=== PATIENT | female | born 1980 | race Caucasian/White ===

== ENCOUNTER 2017-01-21 12:27 | Emergency (ER) | payer BC, OTHER ==
[2017-01-21 12:49] VITALS: BP 107/73
--- NOTE | 2017-01-21 14:03 | UC ---
Respiratory Complaint HPI - HPI Summary HPI Summary: PT WITH OVER 6 WEEKS OF RESPIRATORY SYMPTOMS - COUGH, CONGESTION, EAR PAIN. 2 WEEKS AGO HAD POSITIVE FLU SWAB. HAS PERSISTENT COUGH AND CHEST TIGHTNESS. IS HAVING A HARD TIME SLEEPING DUE TO TIGHTNESS AND COUGH. NO FEVER RECENTLY. - History of Current Complaint Chief Complaint: UCRespiratory Stated Complaint: RESP Time Seen by Provider: 01/21/17 13:41 Hx Obtained From: Patient Hx Last Menstrual Period: January 02 Onset/Duration: Gradual Onset, Lasting Weeks, Still Present Timing: Constant Severity Initially: Moderate Severity Currently: Moderate Pain Intensity: 3 Pain Scale Used: 0-10 Numeric Character: Cough: Productive Aggravating Factors: Nothing Alleviating Factors: Nothing Associated Signs And Symptoms: Positive: URI, Nasal Congestion. Negative: Dyspnea, Fever, Chills, Pleuritic Chest Pain, Wheezing, Hemoptysis, Dizziness, Edema, Hoarseness, Sinus Discomfort - Allergies/Home Medications Allergies/Adverse Reactions: Allergies Allergy/AdvReac Type Severity Reaction Status Date / Time Latex Allergy Intermediate Hives/Diff. Verified 01/21/17 12:49 Breathing/I tching Codeine AdvReac Intermediate nausia/vomi Verified 01/21/17 12:49 ting PMH/Surg Hx/FS Hx/Imm Hx Previously Healthy: Yes Endocrine History Of: Denies: Diabetes, Thyroid Disease Cardiovascular History Of: Denies: Cardiac Disorders, Hypertension, Pacemaker/ICD, Congestive Heart Failure, Atrial Fibrillation Respiratory History Of: Denies: COPD, Asthma, Bronchitis GI/ History Of: Denies: Ulcer - Surgical History Surgical History: Yes Surgery Procedure, Year, and Place: C Section January 2013 - Family History Known Family History: Positive: Diabetes - Social History Alcohol Use: Occasionally Substance Use Type: None Smoking Status (MU): Never Smoked Tobacco - Immunization History Most Recent Influenza Vaccination: 2015 Review of Systems Constitutional: Negative ENT: Ear Ache, Nasal Discharge Respiratory: Cough Cardiovascular: Negative Gastrointestinal: Negative All Other Systems Reviewed And Are Negative: Yes Physical Exam Triage Information Reviewed: Yes Appearance: Well-Appearing, No Pain Distress, Well-Nourished Vital Signs: Initial Vital Signs Temp 98.3 F 01/21/17 12:43 Pulse 76 01/21/17 12:43 Resp 20 01/21/17 12:43 BP 107/73 01/21/17 12:43 Pulse Ox 99 01/21/17 12:43 Vital Signs Reviewed: Yes Eyes: Positive: Conjunctiva Clear ENT: Positive: Hearing grossly normal, Pharynx normal, TMs normal Neck: Positive: Supple, Nontender, No Lymphadenopathy Respiratory Exam: Normal Cardiovascular Exam: Normal Abdomen Description: Positive: Soft Musculoskeletal: Positive: No Edema Neurological: Positive: Alert Psychological: Positive: Age Appropriate Behavior Skin: Negative: rashes UC Diagnostic Evaluation - Laboratory O2 Sat by Pulse Oximetry: 99 Respiratory Course/Dx - Differential Dx/Diagnosis Provider Diagnoses: ACUTE BRONCHITIS Discharge - Discharge Plan Condition: Stable Disposition: HOME Prescriptions: Albuterol 2.5MG/3ML (0.083%)* [Ventolin 2.5 MG/3 ML NEB.PARI*] 2.5 mg INH Q4H PRN #1 box PRN Reason: Wheezing Albuterol HFA INHALER* [Ventolin HFA Inhaler*] 2 puff INH Q4H PRN #1 mdi PRN Reason: Shortness Of Breath Ondansetron ODT TAB* [Zofran Odt TAB*] 4 mg PO Q6H PRN #20 tab.odt PRN Reason: Nausea/Vomiting guaiFENesin/CODIEN 100MG-10MG* [Robitussin AC 100Mg-10Mg*] 5 - 10 ml PO Q6H PRN #150 ml MDD 40ML PRN Reason: Cough predniSONE TAB* [Deltasone TAB*] 40 mg PO DAILY #10 tab Patient Education Materials: Acute Bronchitis (ED) Referrals: Irvin Cano MD [Primary Care Provider] - If Needed Additional Instructions: LIKELY VIRAL ETIOLOGY OF YOUR SYMPTOMS. TRY ALBUTEROL AND PREDNISONE TO HELP CALM DOWN AIRWAY INFLAMMATION AND OPEN UP YOUR AIRWAYS. COUGH MEDICINE NEEDED. IF YOU DEVELOP NAUSEA WITH THE CODEINE TAKE ZOFRAN. SEEK FOLLOW-UP IF YOU ARE NOT IMPROVING OVER THE NEXT WEEK OR SO.
== END 2017-01-21 14:00 | disposition home or self-care (01) ==
LOC: UCEAST 12:27
DX: J20.9 Acute bronchitis, unspecified (principal)
CPT/HCPCS: 99212; G0463

== ENCOUNTER 2018-11-14 09:25 | Emergency (ER) | payer BC ==
[2018-11-14 09:47] VITALS: BP 116/68
--- NOTE | 2018-11-14 10:16 | UC ---
Respiratory Complaint HPI - HPI Summary HPI Summary: has been sick with URI symps for 3-4 weeks. treated 1 week ago for sinusitis with amoxil x 5 days. started to feel better until yesterday when her cough got worse, preventing sleep. R sinus is starting to feel pressure. is using mucinex - History of Current Complaint Chief Complaint: UCRespiratory Stated Complaint: URI Time Seen by Provider: 11/14/18 09:54 Hx Obtained From: Patient Hx Last Menstrual Period: 11/13/18 Onset/Duration: Gradual Onset Timing: Constant Pain Intensity: 3 Character: Cough: Nonproductive Alleviating Factors: Nothing Associated Signs And Symptoms: Positive: Fever, Nasal Congestion. Negative: Hemoptysis - Allergies/Home Medications Allergies/Adverse Reactions: Allergies Allergy/AdvReac Type Severity Reaction Status Date / Time Latex, Natural Rubber Allergy Intermediate Hives/Diff. Verified 11/14/18 09:47 Breathing/I tching PMH/Surg Hx/FS Hx/Imm Hx Previously Healthy: Yes Respiratory History: Asthma - Surgical History Surgical History: Yes Surgery Procedure, Year, and Place: C Section January 2013 - Family History Known Family History: Positive: Diabetes - Social History Occupation: Employed Part-time - RN Alcohol Use: None Substance Use Type: None Smoking Status (MU): Never Smoked Tobacco - Immunization History Most Recent Influenza Vaccination: 2018 Review of Systems All Other Systems Reviewed And Are Negative: Yes Constitutional: Positive: Fever, Fatigue Skin: Positive: Negative Eyes: Positive: Negative ENT: Positive: Sore Throat, Sinus Congestion Respiratory: Positive: Cough Cardiovascular: Positive: Negative Gastrointestinal: Positive: Negative Neurological: Positive: Negative Psychological: Positive: Negative Is Patient Immunocompromised?: No Physical Exam Triage Information Reviewed: Yes Appearance: Well-Appearing, No Pain Distress, Well-Nourished Vital Signs: Initial Vital Signs Temp 96.8 F 11/14/18 09:42 Pulse 72 11/14/18 09:42 Resp 16 11/14/18 09:42 BP 116/68 11/14/18 09:42 Pulse Ox 99 11/14/18 09:42 Vital Signs Reviewed: Yes Eyes: Positive: Conjunctiva Clear ENT: Positive: Pharynx normal, Nasal congestion Neck: Positive: Nontender, No Lymphadenopathy Respiratory Exam: Normal Respiratory: Positive: Lungs clear Cardiovascular Exam: Normal Cardiovascular: Positive: RRR Psychological Exam: Normal Skin Exam: Normal Skin: Negative: Rashes UC Diagnostic Evaluation - Laboratory O2 Sat by Pulse Oximetry: 99 Respiratory Course/Dx - Differential Dx/Diagnosis Differential Diagnosis/HQI/PQRI: Asthma, Bronchitis, Influenza, Lower Resp Infection, Sinusitis Provider Diagnosis: Bronchitis Discharge - Sign-Out/Discharge Documenting (check all that apply): Patient Departure All imaging exams completed and their final reports reviewed: No Studies - Discharge Plan Condition: Stable Disposition: HOME Prescriptions: Albuterol 2.5MG/3ML (0.083%)* [Ventolin 2.5 MG/3 ML NEB.PARI*] 2.5 mg INH Q6H PRN #90 neb.pari PRN Reason: Sob/Wheezing Azithromycin TAB* [Zithromax TAB (Z-DYLLAN) 250 mg #6 tabs] 2 tab PO .TODAY, THEN 1 DAILY #1 dyllan predniSONE TAB* [Deltasone TAB*] 50 mg PO DAILY #3 tab Patient Education Materials: Acute Bronchitis (ED) Referrals: Irvin Cano MD [Primary Care Provider] - 2 Days (if no better) Additional Instructions: rest, drink plenty of fluids use medications as directed return if problems worsen - Billing Disposition and Condition Condition: STABLE Disposition: Home - Attestation Statements Provider Attestation: I was available for consult. This patient was seen by the WANDA. The patient was not presented to , seen by or examined by ia -Francisco Javier Porter MD
== END 2018-11-14 10:45 | disposition home or self-care (01) ==
LOC: UCEAST 09:25
DX: J45.909 Unspecified asthma, uncomplicated (principal); Z91.040 Latex allergy status
CPT/HCPCS: 99212; G0463

== ENCOUNTER 2019-01-02 09:06 | Emergency (ER) | payer BC ==
[2019-01-02 09:16] VITALS: BP 111/66
--- NOTE | 2019-01-02 09:24 | UC ---
Lower Extremity/Ankle HPI - HPI Summary HPI Summary: Patient is year old , who present today to the urgent care with for past days. Associated symptoms: No sick contacts . No skin rash. Denies any new soap, detergent , cosmetics, food or a possible exposure. Denies any fever, chills, cough chest pain or shortness of breath . No diaphoresis. Denies any abdominal pain , nausea or vomiting , diarrhea or constipation. There is no stridor, grunting or audible wheezing drooling, chest retraction or dehydration. Denies any conjunctival redness, irritation, increased lacrimation. Denies any grittiness Denies any radicular symptoms, numbness , tingling , incontinence, saddle anesthesia , motor or sensory disturbance. Patient tried over the counter medication without much relief. - History of Current Complaint Chief Complaint: UCLowerExtremity Stated Complaint: LEFT FOOT PAIN Time Seen by Provider: 01/02/19 09:18 Hx Last Menstrual Period: 12/31/18 Pain Intensity: 7 - Allergies/Home Medications Allergies/Adverse Reactions: Allergies Allergy/AdvReac Type Severity Reaction Status Date / Time Latex, Natural Rubber Allergy Intermediate Hives/Diff. Verified 01/02/19 09:16 Breathing/I tching Home Medications: Home Medications Ibuprofen TAB* [Motrin TAB* 800 MG] 1 tab PO BID 01/02/19 [History Confirmed ] PMH/Surg Hx/FS Hx/Imm Hx - Surgical History Surgical History: Yes Surgery Procedure, Year, and Place: C Section January 2013 - Family History Known Family History: Positive: Diabetes - Social History Alcohol Use: Occasionally Substance Use Type: None Smoking Status (MU): Never Smoked Tobacco - Immunization History Most Recent Influenza Vaccination: 2017 Physical Exam - Summary Physical Exam Summary: Physical Exam: Const: Appears well. No signs of apparent distress present. Alert and oriented x 3. Musculo: Walks with a normal gait. Head/Face: Atraumatic, normocephalic on inspection. Eyes: EOMI and PERRLA in both eyes. Conjunctivae clear. No discharge noted ENT: Hearing normal, TM normal appearing bilaterally, non bulging , non erythematous . No tenderness on palpation / manipulation of Tragus. No mastoid tenderness. No tenderness to palpation on maxillary and frontal sinus. No pharyngeal erythema or exudates . Uvula is midline. No cervical or submandibular lymphadenopathy noted. Respiratory: Respirations are unlabored. Lungs clear to auscultation bilaterally, no wheezing , rhonchi or rales noted . CVS: Regular rate and Rhythm, S1S2 normal , no murmurs identified. Extremities: Peripheral circulation is grossly normal. Pulses 2+ Abdomen : Soft non tender , nondistended , Bowel sounds present . No guarding , rebound tenderness or rigidity noted. Skin: No lesions or rash located on the upper extremities or on the lower extremities. Neuro: Cranial nerves II to XII intact, motor and sensory intact. DTR Intact bilaterally. Mood is normal. Affect is normal. Ankle/Feet examination: Ankle: Gait: Normal weight bearing, Inspection/palpation: No bruising, swelling or crepitus noted. There is tenderness to palpation in the area of ATFL, CFL, PTFL, Deltoid ligament. There is no tenderness to palpation of the medial malleolus, lateral malleolus or the base of 5th metatarsal. Ankle mortise appears intact. ROM: full AROM: Full dorsiflexion(20 deg), Full plantar flexion(50 deg) Strength: 5/5 with dorsiflexion, plantarflexion, inversion and eversion Special tests:Anterior drawer test is negative . Side to side test negative.Talar tilt test(inversion stress) and the eversion stress test negative. Negative Squeeze and External Rotation tests. Heel tap test negative. Ankle of other side is negative for bruising, swelling or tenderness to palpation. It has full ROM, strength and stability. Feet: Insp/Palp: Feet normal to inspection bilaterally, normal arch of the feet bilaterally. His Strength: EHL 5/5 blaterally Skin: No scars, rashes, lesions or ecchymosis. 2+ posterior tibial and dorsalis pedis pulse bilaterally. Neuro: Sensation to light touch is intact in the lower extremities bilaterally. Coordination normal. Vital Signs: Initial Vital Signs Temp 97.6 F 01/02/19 09:13 Pulse 74 01/02/19 09:13 Resp 16 01/02/19 09:13 BP 111/66 01/02/19 09:13 Pulse Ox 100 01/02/19 09:13 Lower Extremity Course/Dx - Course Course Of Treatment: During the visit today, we obtained . We discussed the findings and further plan. I will prescribe the medication to the pharmacy . Patient expressed understanding . Discharge - Discharge Plan Referrals: Freya Fuchs DO [Primary Care Provider] - Additional Instructions: Please start taking the medication as prescribed to the pharmacy . Follow up with your primary care doctor in 2 days. Please follow up with .. for the consult Patients blood pressure slightly high in Urgent care today , plan follow up with PCP for better control Return to Urgent care / ER if symptoms get worse.
[2019-01-02] MEDS ORDERED: Ketorolac INJ* 30 MG/ML 1 ML VIAL IM ONE (09:27)
--- NOTE | 2019-01-02 09:30 | UC ---
Lower Extremity/Ankle HPI - HPI Summary HPI Summary: 38-year-old female with pain and swelling at the base of the left great toe. 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 Earlier in the week she had increased swelling and pain and was evaluated by a physician and given Toradol 60 mg IM and advised to have an x-ray done. The physician at that time thought she might have gout although she has no history of gout. She wears comfortable sneakers. - History of Current Complaint Chief Complaint: UCLowerExtremity Stated Complaint: LEFT FOOT PAIN Time Seen by Provider: 01/02/19 09:18 Hx Obtained From: Patient Hx Last Menstrual Period: 12/31/18 ?: No Onset/Duration: Gradual Onset Severity Initially: Moderate Severity Currently: Mild - Vision states the swelling and pain has improved this morning. 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 She does have a history of small bunion on both feet at the base of the great toe. - Risk Factors Gout Risk Factors: Age Over 40 DVT Risk Factors: Negative Septic Arthritis Risk Factor: Negative - Allergies/Home Medications Allergies/Adverse Reactions: Allergies Allergy/AdvReac Type Severity Reaction Status Date / Time Latex, Natural Rubber Allergy Intermediate Hives/Diff. Verified 01/02/19 09:16 Breathing/I tching Home Medications: Home Medications Ibuprofen TAB* [Motrin TAB* 800 MG] 1 tab PO BID 01/02/19 [History Confirmed ] PMH/Surg Hx/FS Hx/Imm Hx Previously Healthy: Yes - Surgical History Surgical History: Yes Surgery Procedure, Year, and Place: C Section January 2013 - Family History Known Family History: Positive: Diabetes - Social History Occupation: Employed Full-time Lives: With Family Alcohol Use: Occasionally Substance Use Type: None Smoking Status (MU): Never Smoked Tobacco - Immunization History Most Recent Influenza Vaccination: 2017 Review of Systems All Other Systems Reviewed And Are Negative: Yes Motor: Positive: Negative Neurovascular: Positive: Negative Musculoskeletal: Positive: Other: - Swelling at the base of the great toe has improved today. She has not noted any erythema to the area. She's had more pain with flexion and extension but that has improved today as well. Neurological: Positive: Negative Psychological: Positive: Negative Is Patient Immunocompromised?: No Physical Exam Triage Information Reviewed: Yes Appearance: Well-Appearing, No Pain Distress, Well-Nourished Vital Signs: Initial Vital Signs Temp 97.6 F 01/02/19 09:13 Pulse 74 01/02/19 09:13 Resp 16 01/02/19 09:13 BP 111/66 01/02/19 09:13 Pulse Ox 100 01/02/19 09:13 Vital Signs Reviewed: Yes Musculoskeletal: Positive: Strength Intact, ROM Intact, Other: - Mild swelling at the base of the great toe, no cellulitis or erythema, there is mildly increased pain to the lateral portion of the left great toe. No deformity, bruising is noted. No Tenderness, Achilles is intact. Peripheral pulses neuro sensation and capillary refill. Neurological Exam: Normal Psychological Exam: Normal Skin Exam: Normal Lower Extremity Course/Dx - Course Course Of Treatment: Patient has no history of gout and her great toe is not erythematous and has normal temperature to touch. I feel this may be more because of the bunion that she has or a result of some arthritic findings which were noted on the x- ray. She is going to continue Motrin and I advised her to follow-up with a sandblaster supervisor for further treatment. We also discussed quality of shoes that she wears for her long shifts. REPORT AND IMPRESSION: #. 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 Normal variant bipartite sesamoid at the medial head of the flexor hallucis brevis. Negative for fracture or stress reaction. Os peroneum accessory ossicle noted. Unremarkable soft tissue contours. - Differential Dx/Diagnosis Differential Diagnosis/HQI/PQRI: Gout Provider Diagnosis: Toe pain Discharge - Sign-Out/Discharge Documenting (check all that apply): Patient Departure All imaging exams completed and their final reports reviewed: Yes - Discharge Plan Condition: Good Disposition: HOME Patient Education Materials: Swollen Joint (ED) Forms: *Work Release Referrals: Freya Fuchs DO [Primary Care Provider] - Additional Instructions: Elevate your foot as much as possible. Continue to take Motrin 600 mg by mouth every 8 hours for pain. Apply heat to the sore area. Definite follow-up with a sandblaster supervisor in the next 2 or 3 days if no improvement. - Billing Disposition and Condition Condition: GOOD Disposition: Home - Attestation Statements Provider Attestation: I was available for consult. This patient was seen by the WANDA. The patient was not presented to , seen by or examined by ne -Francisco Javier Porter MD
== END 2019-01-02 10:22 | disposition home or self-care (01) ==
LOC: UCEAST 09:06
DX: M79.675 Pain in left toe(s) (principal); Z91.040 Latex allergy status
CPT/HCPCS: 96372; 99211; G0463; J1885

== ENCOUNTER 2019-03-02 18:52 | Emergency (ER) | payer BC ==
--- NOTE | 2019-03-02 21:03 | ED ---
Abdominal Pain/Female - HPI Summary HPI Summary: A 38 y/o F presents to ED c/o intermittent episodes of severe nausea onset one week ago, and returning this afternoon. Last week, she had nausea and took Tums , Pepto and Zofran to no relief. Six days ago, she was travelling and ate a cheeseburger. The next day, she woke up doubled over in pain. She limited her diet to saltines for the weekend and felt improved but not a hundred percent. Today, patient ate a salad at 1230, and had to leave work early due to the abd pain. She took OTC medications to mild relief. At 1700, she took a bite of yogurt, and the nausea and abd pain worsened and now radiates to her back. Denies vomiting. She is hungry but feels sick each time she eats. [facility]: IUD. Denies chance of . Surgeries: . - History of Current Complaint Chief Complaint: EDAbdPain Stated Complaint: ABD PAIN PER PT Time Seen by Provider: 03/02/19 20:57 Hx Obtained From: Patient Hx Last Menstrual Period: 12/31/18 Onset/Duration: Lasting Hours - this episode, Still Present Timing: Intermittent Episode Lasting Severity Initially: Moderate Severity Currently: Severe Pain Intensity: 7 Pain Scale Used: 0-10 Numeric Location: Discrete At: RUQ Radiates: Yes Radiates to: Back Character: Burning Aggravating Factor(s): Food Alleviating Factor(s): OTC Analgesics, Spontaneous Resolution Associated Signs and Symptoms: Positive: Back Pain, Nausea. Negative: Vomiting Allergies/Adverse Reactions: Allergies Allergy/AdvReac Type Severity Reaction Status Date / Time Latex, Natural Rubber Allergy Intermediate Hives/Diff. Verified 03/02/19 18:59 Breathing/I tching Home Medications: Home Medications Multivitamin [Once Daily] 1 tab PO DAILY 03/02/19 [History Confirmed 03/02/19] PMH/Surg Hx/FS Hx/Imm Hx Previously Healthy: Yes Endocrine/Hematology History: Denies: Hx Diabetes, Hx Thyroid Disease Cardiovascular History: Denies: Hx Congestive Heart Failure, Hx Hypertension, Hx Pacemaker/ICD, Other Cardiovascular Problems/Disorders Respiratory History: Denies: Hx Asthma, Hx Chronic Obstructive Pulmonary Disease (COPD), Other Respiratory Problems/Disorders GI History: Denies: Hx Ulcer History: Denies: Hx Renal Disease - Surgical History Surgery Procedure, Year, and Place: C Section January 2013 Infectious Disease History: No Infectious Disease History: Denies: Hx Clostridium Difficile, Hx Hepatitis, Hx Human Immunodeficiency Virus (HIV), Hx of Known/Suspected MRSA, Hx Shingles, Hx Tuberculosis, Hx Known/ Suspected VRE, History Other Infectious Disease, Traveled Outside the [place] in Last 30 Days - Family History Known Family History: Positive: Diabetes - Social History Occupation: Employed Full-time Lives: Dormitory/Roommates Alcohol Use: Occasionally Hx Substance Use: No Substance Use Type: Reports: None Hx Tobacco Use: No Smoking Status (MU): Never Smoked Tobacco Review of Systems Positive: Abdominal Pain, Nausea. Negative: Vomiting Musculoskeletal: Other - pos: back pain radiating from abd All Other Systems Reviewed And Are Negative: Yes Physical Exam - Summary Physical Exam Summary: Appearance: Well-appearing, Well-nourished, lying in bed comfortably Skin: Warm, dry, no obvious rash Eyes: sclera anicteric, no conjunctival pallor ENT: mucous membranes moist, pharynx appears normal Neck: Supple, nontender Respiratory: Clear to auscultation, no signs of respiratory distress Cardiovascular: Normal S1, S2. No murmurs. Normal distal pulses in tibial and radial bilaterally. Abdomen: Soft, RUQ tenderness with guarding, normal active bowel sounds present Musculoskeletal: Normal, Strength/ROM Intact Neurological: A&Ox3, awake and alert, mentation is normal, speech is fluent and appropriate Psychiatric: affect is normal, does not appear anxious or depressed Triage Information Reviewed: Yes Vital Signs On Initial Exam: Initial Vitals Temp Pulse Resp BP Pulse Ox 98 F 73 16 125/85 98 03/02/19 18:56 03/02/19 18:56 03/02/19 18:56 03/02/19 18:56 03/02/19 18:56 Vital Signs Reviewed: Yes Diagnostics - Vital Signs Vital Signs Temp Pulse Resp BP Pulse Ox 03/02/19 18:56 98 F 73 16 125/85 98 - Laboratory Result Diagrams: 03/02/19 21:24 03/02/19 21:24 Lab Statement: Any lab studies that have been ordered have been reviewed, and results considered in the medical decision making process. - Ultrasound No standard instances Ultrasound Interpretation Completed By: Radiologist Summary of Ultrasound Findings: GALLBLADDER US IMPRESSION: 1. Borderline hepatomegaly. 2. Positive sono Yeboah's sign with no gallstones and no gallbladder wall thickening. 3. Otherwise negative upper quadrant sonogram. ED provider has reviewed this report. Re-Evaluation - Re-Evaluation 1 Re-Evaluation Time: 23:44 Comment: Discussing results with patient and plans for discharge. She has no abd tenderness and is agreeable to D/C. Abdominal Pain Fem Course/Dx - Course Course Of Treatment: Patient is a 38 y/o F presenting with intermittent episodes of severe nausea onset one week ago, and returning this afternoon. Aggravating factors: eating. Denies vomiting. She is hungry but feels sick each time she eats. [facility]: IUD. Denies chance of . Surgeries: . Lab work is without significant abnormality. UA results are negative for infection. Gallbladder US shows "1. Borderline hepatomegaly. 2. Positive sono Yeboah's sign with no gallstones and no gallbladder wall thickening. 3. Otherwise negative upper quadrant sonogram.". Will discharge patient home. - Diagnoses Provider Diagnoses: Acute abdominal pain Discharge - Sign-Out/Discharge Documenting (check all that apply): Patient Departure - D/C Patient Received Moderate/Deep Sedation with Procedure: No - Discharge Plan Condition: Improved Disposition: HOME Patient Education Materials: Acute Abdominal Pain (ED) Referrals: Freya Fuchs DO [Primary Care Provider] - Additional Instructions: Continue the prilosec for now, but if your symptoms persist you may need a special test called a CCK-HIDA scan to look for problems with your gall bladder function. - Billing Disposition and Condition Condition: IMPROVED Disposition: Home - Attestation Statements Document Initiated by Lindyibe: Yes Documenting Scribe: Sonya Collins Provider For Whom Renetta is Documenting (Include Credential): Dr. Hector Allen MD Scribe Attestation: Sonya Andersen scribed for Dr. Hector Allen MD on 03/03/19 at 0309. Scribe Documentation Reviewed: Yes Provider Attestation: The documentation as recorded by the Sonya maradiaga accurately reflects the service I personally performed and the decisions made by me, Dr. Hector Allen MD Status of Scribe Document: Viewed
[2019-03-02] MEDS ORDERED: PROCHLORPERAZINE INJ 5 MG/ML 2 ML VIAL IV ONE (21:05)
[2019-03-02] MEDS ORDERED: NS 0.9% 1000 ML** 2,000 ML IV ONE (21:05)
[2019-03-02] MEDS ORDERED: Ketorolac INJ* 30 MG/ML 1 ML VIAL IV PUSH ONE (21:05)
[2019-03-02 21:20] LABS: Urine Appearance Clear; Urine Bilirubin Negative (Negative); Urine Blood Negative (Negative); Urine Color Straw; Urine Glucose Negative (Negative); Urine Ketones Negative (Negative); Urine Nitrite Negative (Negative); Urine Protein Negative (Negative); Urine Urobilinogen Negative (Negative)
[2019-03-02 21:33] LABS: Hematocrit 41 % (35-47); Hemoglobin 13.8 g/dL (12.0-16.0); Mean Corpuscular HGB Conc 34 g/dL (31-36); Mean Corpuscular Hemoglobin 31 pg (27-31); Mean Corpuscular Volume 91 fL (80-97); Mean Platelet Volume 9.4 fL (7.4-10.4); Platelet Count 168 10^3/uL (150-450); Red Blood Count 4.51 10^6 /uL (3.70-4.87); Red Cell Distribution Width 13 % (10.5-15); White Blood Count 6.6 10^3/uL (3.5-10.8)
[2019-03-02 21:54] LABS: ABS Eosinophils 0.2 10^3/ul (0-0.6); ABS Lymphocytes 1.6 10^3/ul (1.0-4.8); ABS Monocytes 0.4 10^3/ul (0-0.8); ABS Neutrophils 4.3 10^3/ul (1.5-7.7); Eosinophil % 2.9 %; Lymphocyte % 24.5 %
[2019-03-02 22:04] LABS: Albumin/Globulin Ratio 1.7 (1-3); BUN/Creatinine Ratio 14.5 (8-20); Calcium 9.2 mg/dL (8.6-10.3); EGFR Non-African American 84.3 (>60); Globulin 2.4 g/dL (2-4); Potassium 3.9 mmol/L (3.5-5.0); Total Bilirubin 0.4 mg/dL (0.2-1.0); Total Protein 6.4 g/dL (6.4-8.9)
[2019-03-03 00:06] VITALS: BP 108/59
== END 2019-03-03 00:05 | disposition home or self-care (01) ==
LOC: ED 18:52
DX: R10.9 Unspecified abdominal pain (principal); M54.9 Dorsalgia, unspecified; R11.0 Nausea
CPT/HCPCS: 36415; 76705; 80053; 81003; 83690; 85025; 96361; 96374; 96375; 99283; J0780; J1885

== ENCOUNTER 2019-09-07 07:08 | Emergency (ER) | payer BC ==
[2019-09-07 07:22] VITALS: BP 121/73
--- NOTE | 2019-09-07 07:32 | UC ---
Respiratory Complaint HPI - HPI Summary HPI Summary: 3 DAYS OF COUGH, CHEST CONGESTION, PLEURITIC PAIN AND STUFFY NOSE. REPORTS ELEVATED TEMP AROUND 100. NO SORE THROAT, EAR PAIN, NAUSEA/VOMITING.PT CONCERNED ABOUT PNEUMONIA. - History of Current Complaint Chief Complaint: UCRespiratory Stated Complaint: LUNG CONGESTION Time Seen by Provider: 09/07/19 07:15 Hx Obtained From: Patient Hx Last Menstrual Period: iud Onset/Duration: Gradual Onset, Lasting Days, Still Present Timing: Constant Severity Initially: Moderate Severity Currently: Moderate Pain Intensity: 5 Pain Scale Used: 0-10 Numeric Character: Cough: Nonproductive Aggravating Factors: Nothing Alleviating Factors: Nothing Associated Signs And Symptoms: Positive: Fever, URI, Nasal Congestion. Negative : Dyspnea, Wheezing, Sinus Discomfort - Allergies/Home Medications Allergies/Adverse Reactions: Allergies Allergy/AdvReac Type Severity Reaction Status Date / Time Latex, Natural Rubber Allergy Intermediate Hives/Diff. Verified 03/02/19 18:59 Breathing/I tching PMH/Surg Hx/FS Hx/Imm Hx Previously Healthy: Yes - Surgical History Surgical History: Yes Surgery Procedure, Year, and Place: C Section January 2013, - Family History Known Family History: Positive: Diabetes - Social History Alcohol Use: Occasionally Substance Use Type: None Smoking Status (MU): Never Smoked Tobacco - Immunization History Most Recent Influenza Vaccination: 2018 Review of Systems All Other Systems Reviewed And Are Negative: Yes Constitutional: Positive: Chills, Fatigue ENT: Positive: Nasal Discharge Respiratory: Positive: Cough, Other - PLEURITIC PAIN Cardiovascular: Positive: Negative Gastrointestinal: Positive: Negative Physical Exam Triage Information Reviewed: Yes Appearance: Well-Appearing, No Pain Distress, Well-Nourished Vital Signs: Initial Vital Signs Temp 98.2 F 09/07/19 07:17 Pulse 74 09/07/19 07:17 Resp 18 09/07/19 07:17 BP 121/73 09/07/19 07:17 Pulse Ox 94 09/07/19 07:17 Vital Signs Reviewed: Yes Eyes: Positive: Conjunctiva Clear ENT: Positive: Hearing grossly normal, Pharynx normal, TMs normal Neck: Positive: Supple, Nontender, No Lymphadenopathy Respiratory Exam: Normal Cardiovascular Exam: Normal Abdomen Description: Positive: Soft Musculoskeletal: Positive: No Edema Neurological: Positive: Alert Psychological: Positive: Age Appropriate Behavior Skin: Negative: Rashes Diagnostics - Radiology CXR Radiology Interpretation Completed By: Radiologist Summary of Radiographic Findings: NO ACTIVE CARDIOPULMONARY DISEASE. Respiratory Course/Dx - Course Course Of Treatment: CHEST X-RAY TODAY UNREMARKABLE. RECHECK OXYGEN SATURATION 96%. LIKELY VIRAL ETIOLOGY OF SYMPTOMS. NO INDICATION FOR ANTIBIOTICS TODAY. PATIENT HAS ALBUTEROL AT HOME WHICH SHE CAN USE IF NEEDED. WILL GIVE SHORT BURST OF PREDNISONE TO HELP WITH AIRWAY INFLAMMATION. ADVISED TO SEEK FOLLOW-UP IF NOT IMPROVING OVER THE NEXT WEEK OR SO. - Differential Dx/Diagnosis Provider Diagnosis: Acute bronchitis Discharge ED - Sign-Out/Discharge Documenting (check all that apply): Patient Departure All imaging exams completed and their final reports reviewed: Yes - Discharge Plan Condition: Stable Disposition: HOME Prescriptions: predniSONE TAB* [Deltasone TAB*] 50 mg PO DAILY #5 tab Patient Education Materials: Acute Bronchitis (ED) Referrals: Freya Fuchs DO [Primary Care Provider] - If Needed Additional Instructions: CXR TODAY UNREMARKABLE. YOUR SYMPTOMS ARE LIKELY VIRALLY MEDIATED AND SHOULD RESOLVE ON THEIR OWN WITH TIME. NO INDICATION FOR ANTIBIOTICS AT PRESENT. REST, HYDRATE, OTC MEDS NEEDED. WILL TREAT WITH PREDNISONE TO HELP WITH AIRWAY INFLAMMATION. USE YOUR ALBUTEROL AT HOME PRESCRIBED IF NEEDED. SEEK FOLLOW- UP IF YOU ARE NOT IMPROVING OVER THE NEXT 1-2 WEEKS. - Billing Disposition and Condition Condition: STABLE Disposition: Home
== END 2019-09-07 08:16 | disposition home or self-care (01) ==
LOC: UCEAST 07:08
DX: J20.9 Acute bronchitis, unspecified (principal); R09.89 Other specified symptoms and signs involving the circulatory and respiratory systems; R07.81 Pleurodynia; Z91.040 Latex allergy status
CPT/HCPCS: 71046; 99212; G0463